=== PATIENT | female | born 1945 | race Caucasian/White ===

== ENCOUNTER 2016-05-09 15:18 | Inpatient (IN) | payer OTHER ==
[~2016-05-09] VITALS: Ht 162.6 cm; Wt 73.7 kg
[~2016-05-09 15:18] MED LIST: ASPIRIN ADULT L81 MG PO; ATORVASTATIN CA20 MG PO; AVELOX ABC PAC400 MG PO; IPRATROPIUM BROMIDE/ IN; LEVOFLOXACIN500 MG PO; PROAIR HFA IN; QVAR40 MCG IN; SPIRIVA18 MCG INH; TYLENOL325 MG PO
--- NOTE | 2016-05-09 17:01 | DIAGNOSTIC IMAGING REPORT ---
PROCEDURE: XR CHEST 1 VIEW INDICATION: SHORTNESS OF BREATH TECHNIQUE: Portable AP view 04:29 p.m. COMPARISON: Chest 03/17/2016 FINDINGS: Allowing for overlying wires and electrodes, lungs are clear. Heart and mediastinum are normal. Mild degenerative changes of the thoracic spine. Thorax is otherwise normal. IMPRESSION: 1. Negative chest.
--- NOTE | 2016-05-09 20:13 | ED ORDER SUMMARY ---
..... Patient: MARCO SMART OrderSheet [facility] VisitID: [id number] [address] [place] [address] 70y, F Registration Date/Time: 05/09/2016 ORDER SHEET Weight: 68.0 kg (estimated) Allergies: No Known Drug Allergy GENERAL ORDERS: Chest 1V Urgent (16:08 05/09/2016 Leida LOPEZ) (Ack 16:15 LTapper) (17:06 MCampbell) Green Chain Off Bearer (Continuous) (16:08 05/09/2016 Leida LOPEZ) (16:12 ABarnum R.N.) CBC w Diff Urgent (16:05/09/2016 Leida LOPEZ) (Ack 16:15 LTapper) (18:15 ABarnum R.N.) CMP Urgent (16:05/09/2016 Leida LOPEZ) (Ack 16:15 LTapper) (18:15 ABarnum R.N.) Oxygen (2 L/min) (NC) (16:10 05/09/2016 Leida LOPEZ) (16:12 ABarnum R.N.) Pulse oximeter (16:10 05/09/2016 Leida LOPEZ) (16:12 ABarnum R.N.) Rapid Influenza Screen (Nasal Pharyngeal) (swab) Urgent (19:45 05/09/2016 Leida LOPEZ) (Ack 19:46 LTapper) (20:03 ABarnum R.N.) ABG (G) Urgent (20:04 05/09/2016 Leida LOPEZ) (Ack 20:05 LTapper) (20:24 ABarnum R.N.) MEDICATION ORDERS: DuoNeb Neb Tx 1 unit dose (NOW) (16:11 05/09/2016 Leida LOPEZ) (Ack 16:12 ABarnum R.N.) (16:27 RMcCarson) Albuterol Neb Tx 1 unit dose (NOW, with pediatric spacer, HHN) (20:02 05/09/2016 Leida LOPEZ) (20:25 ABarnum R.N.) IV FLUIDS: IV NS : initial bolus 1000 mL (1000 mL/hr), then none - (NOW) (16:08 05/09/2016 Leida LOPEZ) (Ack 16:12 ABarnum R.N.) (16:40 ABarnum R.N.) Solu-MEDROL IV 125 mg (NOW) (16:09 05/09/2016 Leida LOPEZ) (Ack 16:12 ABarnum R.N.) (16:40 ABarnum R.N.) Ativan IV 1 mg (HIGH ALERT MEDICATION, NOW) (16:09 05/09/2016 Leida LOPEZ) (Ack 16:12 ABarnum R.N.) (16:40 ABarnum R.N.) Toradol IV 30 mg (NOW) (16:09 05/09/2016 Leida LOPEZ) (Ack 16:12 ABarnum R.N.) (16:39 ABarnum R.N.) Dilaudid IV 1 mg (HIGH ALERT MEDICATION, NOW) (18:14 05/09/2016 Leida LOPEZ) (18:26 ABarnum R.N.) Toradol IV 30 mg (NOW) (18:14 05/09/2016 Leida LOPEZ) (Cancelled: Other18:16 Leida LOPEZ) IV NS : initial bolus 1000 mL (1000 mL/hr), then none - (NOW) (19:46 05/09/2016 Leida LOPEZ) (19:55 ABarnum R.N.) ORDER SHEET NOTES: [Electronically signed by Shanice Willoughby R.N. (16:07 05/10/2016)] [Electronically signed by Concepcion Hermosillo MD (21:18 05/13/2016)] [Electronically locked/signed by Shanice Willoughby R.N. (16:07 05/10/2016)]
--- NOTE | 2016-05-09 20:13 | ED NURSING NOTES ---
Clinical Report - Nurses [facility] [address] [place] [address] 05/09/2016 15:20 Patient: MARCO SMART TRIAGE Triage time 15:May 09 2016. Acuity: LEVEL 3. Chief Complaint: SHORTNESS OF BREATH, DIFFICULTY BREATHING and WHEEZING. --15:32 Fartun August R.N. 15:28 05/09/16. BP: 130/58. HR: 110. RR: 22. O2 saturation: 85% on room air. Temp: 98.5 F (oral). Pain level now: 8/10. Additional comments: Added 1.5 l NC oxygen oxygen sat sitting at 94%. --15:32 Fartun Shanice R.N. Weight: 68 kg estimated. Height/Length: 64 inches Per Patient. BMI: 25.8. --15:27 Fartun August R.N. Medications Additional inhaler, unsure of name. ASA Oral 81mg in am. Atorvastatin Calcium Oral 20 mg, at bedtime. Duodenum Oral. Steroid inhaler . --15: Fartun August RSusanN. Allergies No Known Drug Allergy. --15:28 Fartun August RSusanN. History Arrived by private vehicle. Historian: patient. Accompanied by family and daughter (Edie). This is a recurrent problem and onset was abrupt. (4 days). SOCIAL HX: Former smoker, end date 03/19/2016. Alcohol use. Patient is a recovering alcoholic. No drug use. ABUSE ASSESSMENT: No report of abuse. --15:32 Fartun Shanice RSusanN. PROBLEMS: Hypoxia. Lung Disease. Asthma. COPD - Chronic Obstructive Pulmonary Disease. --15:29 Houghton August RSusanN. Interventions ID band on patient. To treatment room. --15:32 Fartun Shanice R.N. PHYSICAL ASSESSMENT Ambulatory to room. GENERAL / NEURO / PSYCH: Alert. Oriented X 4. Appears in distress. HEENT: Mucous membranes are pink. RESPIRATORY: Moderate respiratory distress. The patient can speak a few words at a time. Accessory muscle use. Prolonged expirations. Cough. Chest wall tenderness. Decreased breath sounds. Wheezing present. Crackles present. CVS: Normal sinus rhythm noted. Capillary refill less than 2 seconds. GI / : ( abdominal spasms/guarding with cough). SKIN: Skin is warm and dry. Normal skin turgor. --15:33 Shanice Willoughby R.N. NURSING PROGRESS NOTES Oxygen administered by nasal cannula at 1.5 liters. dermatology physician, pulse oximeter and NIBP monitor placed on patient; director cardiac- Lead II and V5; monitor alarms on. Patient gowned. Head of bed elevated. Reassurance given. Two patient identifiers checked. Call light placed in reach. Side rails up x 1. Bed placed in lowest position. Brakes of bed on. --15:34 Shanice Willoughby R.N. Patient ready for evaluation- chart flagged and ED physician notified. --15:34 Fartun ShaniceThang 16:17 05/09/2016 Duoneb (Ipratropium-Albuterol) Neb TX Nebulizer 1 unit dose given. --16:27 Blossom Louis 16:28 05/09/2016 Site #1 started via IV in the right forearm with an 22g angiocath, with aseptic technique and good blood return; two attempts. Saline lock flushed with 10 mL saline. --16:38 Fartun ShaniceThang 16:30 05/09/2016 Started bag #1 1000 mL IV Fluids IV NS (Saline); bolus of 1000 mL over 1 hour(s) via site #1 --16:40 Fartun AugustDavNSusan 16:34 05/09/2016 Toradol IVP 30 mg given over 2 minute(s) via site #1. Allergies verified and confirmed 5 rights. IV patency established. IV site checked: no pain, redness, or swelling. IV flushed thoroughly pre- and post-medication administration. IVP given by RN. --16:39 Fartun ShaniceThang 16:35 05/09/2016 SOLU-MEDROL (MethylPREDNISolone Sodium Succ) IVP 125 mg given over 5 minute(s) via site #1. --16:41 Shanice Willoughby R.NSusan 16:40 05/09/2016 Ativan (LORazepam) IVP 1 mg given over 2 minute(s) via site #1. --16:40 Fartunaugust R.NSusan 16:41 05/09/16. BP: 113/59. HR: 97. RR: 18. O2 saturation: 95% on nasal cannula at 2 liters/minute. Pain level now: 11/11. --16:42 Fartun August R.N. Oxygen administered by nasal cannula at 2 liters. dermatology physician, pulse oximeter and NIBP monitor placed on patient; director cardiac- Lead II and V5; monitor alarms on. Reassurance given. Two patient identifiers checked. Call light placed in reach. Side rails up x 1. Bed placed in lowest position. Brakes of bed on. --16:42 Fartun August R.NSusan 17:32 05/09/2016 IV Fluids IV NS Discontinued: bag #1 completed. Total amount infused: 1000 mL. IV patency established. IV site checked: no pain, redness, or swelling. IV flushed thoroughly. --17:32 Houghtonaugust R.NSusan 17:34 05/09/2016 Toradol IVP Response: no adverse reaction. --17:34 Fartunaugust R.NSusan 17:34 05/09/2016 SOLU-MEDROL IVP Response: no adverse reaction. --17:34 Houghtonaugust R.NSusan 17:35 05/09/2016 Ativan IVP Response: no adverse reaction. --17:35 Houghtonaugust R.NSusan 18:24 05/09/16. BP: 122/42. HR: 109. RR: 14. O2 saturation: 91% on nasal cannula at 2 liters/minute. --18:25 Fartunaugust R.N. Oxygen administered by nasal cannula at 2 liters. Monitoring of patient in place. Patient gowned. Head of bed elevated. Reassurance given. Two patient identifiers checked. Call light placed in reach. Side rails up. Bed placed in lowest position. Brakes of bed on. --18:25 Fartun August R.NSusan 18:26 05/09/2016 Dilaudid (HYDROmorphone HCl PF) IVP 1 mg given over 2 hour(s) via site #1. Allergies verified, confirmed 5 rights and sedative warning given to the patient and patient's family. IV patency established. IV site checked: no pain, redness, or swelling. IV flushed thoroughly pre- and post-medication administration. IVP given by RN. --18:26 Fartun AugustDavNSusan 19:43 05/09/16. BP: 82/48. HR: 93. RR: 17. O2 saturation: 95% on nasal cannula at 2 liters/minute. Pain level now: 11/11. --19:44 Fartun AugustThang Oxygen administered by nasal cannula at 2 liters. dermatology physician, pulse oximeter and NIBP monitor placed on patient; director cardiac- Lead II and V5; monitor alarms on. Head of bed elevated. Reassurance given. Two patient identifiers checked. Call light placed in reach. Side rails up x 1. Bed placed in lowest position. Brakes of bed on. --19:44 FartunAugust RSusanNSusan 19:55 05/09/2016 Started bag #2 1000 IV Fluids IV NS (Saline); bolus of 1000 mL over 1 hour(s) via site #1 via IV pump. Allergies verified and confirmed 5 rights. IV patency established. IV site checked: no pain, redness, or swelling. IV flushed thoroughly pre- and post-medication administration. --19:56 Fartun August RSusanNSusan 19:55 05/09/2016 Dilaudid IVP Response: no adverse reaction. --19:55 Houghton, August R.NSusan 20:15 05/09/2016 Albuterol Neb TX Nebulizer 1 unit dose given. Given by the respiratory therapist. Allergies verified and confirmed 5 rights. --20:25 Fartun August RSusanNSusan 15:45 05/09/16. BP: 101/42. HR: 103. RR: 23. O2 saturation: 93%. --21:35 Fartun August RSusanNSusan 16:00 05/09/16. BP: 109/52. HR: 110. RR: 23. O2 saturation: 93%. --21:36 Fartun Shanice, R.N. 17:00 05/09/16. BP: 112/56. HR: 95. RR: 21. O2 saturation: 94%. --21:36 Houghton Shanice, R.N. 17:15 05/09/16. BP: 74/53. HR: 112. RR: 26. O2 saturation: 95%. --21:36 Fartun, August, R.N. 17:30 05/09/16. BP: 106/46. HR: 97. RR: 22. O2 saturation: 93%. --21:37 Houghton Shanice, R.N. 18:00 05/09/16. BP: 145/133. HR: 112. RR: 25. O2 saturation: 91%. --21:38 Fartun Shanice, R.N. 18:30 05/09/16. BP: 102/46. HR: 101. RR: 16. O2 saturation: 92%. --21:39 Houghton August, R.N. 18:45 05/09/16. BP: 104/46. HR: 98. RR: 14. O2 saturation: 93%. --21:39 Houghton August, R.N. 19:00 05/09/16. BP: 117/54. HR: 99. RR: 18. O2 saturation: 93%. --21:39 Houghton Shanice, R.N. 19:15 05/09/16. BP: 98/80. HR: 94. RR: 19. O2 saturation: 95%. --21:40 Fartun August, R.N. 19:30 05/09/16. BP: 67/49. HR: 90. RR: 13. O2 saturation: 94%. --21:40 Houghton August, R.N. 19:45 05/09/16. BP: 109/45. HR: 92. RR: 19. O2 saturation: 95%. --21:41 Fartun Shanice, R.N. 20:00 05/09/16. BP: 106/66. HR: 93. RR: 16. O2 saturation: 96%. --21:41 Houghton August, R.N. 20:15 05/09/16. BP: 102/44. HR: 95. RR: 15. O2 saturation: 94%. --21:42 Fartun August, R.N. 20:30 05/09/16. BP: 100/47. HR: 99. RR: 15. O2 saturation: 94%. --21:42 Houghton August, R.N. 20:45 05/09/16. BP: 95/50. HR: 100. RR: 14. O2 saturation: 93%. --21:42 Fartun August, R.N. 21:00 05/09/16. BP: 103/43. HR: 96. RR: 13. O2 saturation: 94%. --21:44 Houghton August, R.N. 21:15 05/09/16. BP: 107/51. HR: 96. RR: 15. O2 saturation: 95%. --21:44 Houghton August R.NSusan 21:45 05/09/16. BP: 99/56. HR: 95. RR: 14. O2 saturation: 95%. Pain level now: 11/11. --21:45 Shanice Willoughby R.NSusan DISPOSITION / DISCHARGE <<STRICKEN ENTRY-- 16:35 05/09/2016 SOLU-MEDROL (MethylPREDNISolone Sodium Succ) IVP 125 mg given over 5 minute(s) via site #1. --16:40 Shanice Willoughby RArmin --END STRIKE>> Correction. --16:41 Shanice Willoughby R.N. <<STRICKEN ENTRY-- 19:55 05/09/2016 Started bag #2 1000 mL IV Fluids IV NS (Saline); bolus of 1000 mL over 1 hour(s) via site #1 via IV pump. Allergies verified and confirmed 5 rights. IV patency established. IV site checked: no pain, redness, or swelling. IV flushed thoroughly pre- and post-medication administration. --19:55 Shanice Willoughby RArmin --END STRIKE>> Change to Details. --19:56 Shanice Willoughby R.NSusan 21:54 05/09/2016 IV Fluids IV NS Discontinued: bag #2 completed upon admission. Total amount infused: 1000 mL. IV patency established. IV site checked: no pain, redness, or swelling. IV flushed thoroughly. --21:54 Shanice Willoughby R.N. 21:54 05/09/2016 Albuterol Neb TX Response: no adverse reaction. --21:54 Shanice Willoughby R.N. 21:54 05/09/2016 Duoneb Neb TX Response: no adverse reaction. --21:55 Shanice Willoughby R.N. 21:55 05/09/2016 Site #[address] upon admission. --21:55 Shanice Willoughby R.N. Departure time: 2150 PM. Admitted to Acute Care (212). Transported via stretcher by transport team with O2. Report was given to a nurse. Report included patient's care, treatment, medications, reviewed medication reconcilliation, and condition (including any recent changes or anticipated changes). All questions were answered. Report was acknowledged and care was transferred. --21:55 Shanice Willoughby R.N. Locked/Released at 05/10/2016 16:07 by Shanice Willoughby R.N.
--- NOTE | 2016-05-09 20:13 | ED CLINICAL REPORT ---
Clinical Report - Physicians/Mid Levels [facility] [address] [place] [address] 05/09/2016 15:20 Patient: MARCO SMART Time Seen: 15:51. Arrived- By private vehicle. Historian- patient. HISTORY OF PRESENT ILLNESS Chief Complaint: DYSPNEA and HISTORY OF CHRONIC OBSTRUCTIVE PULMONARY DISEASE. This started yesterday and is still present. The dyspnea is described as moderate. The dyspnea is worsened by walking, exertion and cough (nothing improves). The patient has had a cough, wheezing, dyspnea on exertion and anxiety. No sputum production, fever, sweating episodes or chills. No chest pain or discomfort, calf pain, foot swelling or orthopnea. No dizziness, tingling, numbness or palpitations. (PT states her abdomen is very sore from coughing and breathing hard.). Similar symptoms previously: Many times. Recent medical care: Not recently seen/assessed. REVIEW OF SYSTEMS The patient has not had weight loss. No muscle aches, eye irritation, sore throat, nasal discharge or sinus drainage. No nausea, vomiting, abdominal pain, diarrhea or black stools. No bloody stools, headache, fainting episodes, blurred vision or difficulty with urination. No excessive urination, skin rash, enlarged lymph nodes or joint pain. All systems otherwise negative, except as recorded above. PAST HISTORY Problems: Hypoxia. Lifestyle / Substance Problems. Gastroesophageal Reflux Disease. Gastritis. Coronary Artery Disease. Immunizations. COPD - Chronic Obstructive Pulmonary Disease. Asthma. Additional Surgeries: Appendectomy. Basal cell carcinoma removal. Cardiac Catheterization. Hysterectomy. Shoulder Surgery. Tonsillectomy. Medications: Additional inhaler, unsure of name. ASA Oral 81mg in am. Atorvastatin Calcium Oral 20 mg, at bedtime. Duodenum Oral. Steroid inhaler . Allergies: No Known Drug Allergy. SOCIAL HISTORY Former smoker. Alcohol use. Patient is a recovering alcoholic. No drug use. ADDITIONAL NOTES The nursing notes have been reviewed. PHYSICAL EXAM Vital Signs: 05/09/2016 15:28 BP: 130/58. HR: 110. RR: 22. O2 saturation: 85%. Temp: 98.5 F. Pain level now: 8/10. Have been reviewed. Appearance: Alert. Patient in moderate distress. Distress appears respiratory and due to anxiety. Eyes: Pupils equal, round and reactive to light. Eyes normal inspection. ENT: Nose normal. Neck: Normal inspection. Neck supple. CVS: Tachycardia. Heart sounds normal. Pulses normal. Respiratory: Moderate respiratory distress with accessory muscle use, anxiety and tachypnea. Speaks short phrases. Accessory muscle use. Moderately prolonged expirations. Moderately decreased air movement diffusely over both lungs. Wheezing present. Abdomen: Soft. Mild tenderness diffusely. No guarding or rebound tenderness. Back: Normal inspection. No CVA tenderness. Skin: Skin warm and dry. Normal skin color. No rash. Normal skin turgor. Extremities: Extremities exhibit normal ROM. No lower extremity edema. Neuro: No motor deficit. No sensory deficit. (Grossly oriented.). LABS, X-RAYS, AND EKG Rhythm Strip #1: Time: (1554). Rate= 108. Sinus tachycardia. Regular rhythm. Narrow QRS complexes. No ectopy. Conduction normal. Normal ST segments and T waves. The study was interpreted by me. Chest X-ray: No acute disease. Normal lung markings present. Normal heart size. Mediastinum normal. Great vessels normal. Soft tissues normal. No infiltrate. No fracture. No bony lesion present. Views: AP (portable). Technique: good. The X-rays were independently viewed by me, interpreted by the radiologist and contemporaneously by me and discussed with the radiologist. Prior films were not available for comparison. Laboratory Tests: CBC w Diff: (CIRO: 05/09/2016 17:20) ( MsgRcvd 05/09/2016 17:34) Final results Test Result Flag Units (Reference) WHITE BLOOD COUNT 3.8 L K/uL (4.5-11.5) RED BLOOD COUNT 3.88 L M/uL (4.00-5.20) HEMOGLOBIN 11.3 L gm/dL (12.0-16.0) HEMATOCRIT 35.3 L % (36.0-46.0) MEAN CELL VOLUME 91 fL (80-100) MEAN CORPUSCULAR HGB 29 pg (26-34) MEAN CORPUSCULAR HGB CONC 32 g/dL (31-37) RED CELL DISTRIBUTION WIDTH 13.7 % (11.6-14.8) PLATELET COUNT 194 K/uL (150-400) NEUTROPHIL % 59.9 % (50-75) LYMPH % 24.4 L % (25-40) MONO % 15.2 H % (3-14) EOSINOPHIL % 0.2 % (0-4) BASOPHIL % 0.3 % (0-2) CMP: (CIRO: 05/09/2016 16:40) ( MsgRcvd 05/09/2016 17:12) Final results Test Result Flag Units (Reference) GLUCOSE 141 H mg/dL (70-110) BUN 7 mg/dL (7-18) CREATININE 0.6 mg/dL (0.6-1.3) Estimated GFR >60 mL/min Estimated GFR- >60 mL/min Note: Persistent reduction over 3 months in eGFR<60 mL/min/1.73 m2 defines CKD. Patients with eGFR values>=60 mL/min/1.73 m2 may also have CKD if evidence ofpersistent proteinuria. Additional information may be foundat www.kidney.org. SODIUM 141 mmol/L (136-145) POTASSIUM 3.4 L mmol/L (3.5-5.1) CHLORIDE 105 mmol/L (98-107) CARBON DIOXIDE 29 mmol/L (21-32) CALCIUM 8.5 mg/dL (8.5-10.1) TOTAL PROTEIN 6.3 L g/dL (6.4-8.2) ALBUMIN 3.2 L g/dL (3.3-5.0) BILIRUBIN, TOTAL 0.3 mg/dL (0.0-1.0) ALKALINE PHOSPHATASE 83 U/L (46-116) AST (SGOT) 20 U/L (15-37) ALT (SGPT) 17 U/L (12-78) Test Result Flag (Reference) FIO2 32 % (20-101) ABG MODE OF DELIVERY NC MODIFIED CUCO TEST POSITIVE? YES LITERS PER MIN. 3 L/MIN (0-20) ABG PATIENT RESP RATE 20 /MIN ARTERIAL BLOOD GAS SITE LR ARTERIAL BLOOD GAS pH 7.31 L (7.35-7.45) ABG PCO2 57.6 H mmHg (35-45) ABG PO2 74.1 mmHg (60.0-80.0) ABG BASE EXCESS 2.5 H mmol/L (-6.0--6.0) ABG HCO3 29.2 H mmol/L (20.0-26.0) ABG TCO2 31.0 H mmol/L (24.0-30.0) ABG BxWgH2w 89.9 H mmHg (7.0-14.0) *NOTE: Normal range is based on a FIO2 of 21% ABG SAT O2 94.4 L % (95.1-100.0) ABG TOTAL HEMOGLOBIN 11.6 L g/dL (12.0-16.0) ABG O2 HEMOGLOBIN 92.7 L % (95.0-100.0) ABG CARBOXYHEMOGLOBIN 1.5 % (0.5-1.5) ABG METHEMOGLOBIN 0.3 L % (0.4-1.5) ABG RHEMOGLOBIN 5.5 % Rapid Influenza Screen: (CIRO: 05/09/2016 19:50) ( MsgRcvd 05/09/2016 20:20) Final results SPECIMEN DESCRIPTION: SWAB Test Result Flag (Reference) RAPID INFLUENZA SCREEN DATE: 05/09/16 INFLUENZA A: NEGATIVE SCREEN FOR INFLUENZA A INFLUENZA B: NEGATIVE SCREEN FOR INFLUENZA B RAPID INFLUENZA NEAGATIVE FOR "A" "B". . Pulse Oximetry: 05/09/2016 15:28 O2 saturation: 85%. (FIO2 - room air). Interpretation: normal. PROGRESS AND PROCEDURES Course of Care: I did evaluate pt upon arrival in the ED. She was hypoxic and in respiratory distress, and I did feel she should have immediate respiratory intervention. She was started on a duoneb, followed by an albuterol neb and an IV dose of Solu-medrol. She was given a liter of NS, as well as IV Toradol, Ativan, and Dilaudid for her painful abdominal muscles. Pt did improve after the above interventions, but pt and daughter did not feel that she was back to her baseline respiratory status. Her work-up was negative for other acute issues, but I did feel that she should be admitted for her COPD exacerbation. Critical care performed (60 minutes). Time is exclusive of separately billable procedures. Time includes: direct patient care, patient reassessment, coordination of patient care, interpretation of data (laboratory data, pulse oximetry, arterial blood gases, chest xrays and cardiac output measurements), review of patient's medical records, medical consultation, family consultation regarding treatment decisions and documentation of patient care- see progress notes. The patient required critical care due to the acute impairment of vital organ systems (respiratory) and a high probability of imminent and life threatening deterioration. Multiple emergent and urgent interventions were required to prevent sudden life threatening deterioration. Discussed case with hospitalist, (Albertina). Reviewed test results and need for additional work-up. Agreed upon treatment plan and decision to admit. Health care provider will see patient in hospital. Patient and family counseled in person regarding the patient's serious condition, test results, diagnosis and need for admission. Concerns were addressed. Old medical records reviewed. Disposition: Admitted to Acute Care. Condition: stable and serious. CLINICAL IMPRESSION Acute exacerbation of COPD. (Electronically signed by Concepcion Hermosillo MD 05/13/2016 21:18)
--- NOTE | 2016-05-09 20:13 | ED NURSING NOTES ---
Clinical Report - Nurses [facility] [address] [place] [address] 05/09/2016 15:20 Patient: MARCO SMART TRIAGE Triage time 15:May 09 2016. Acuity: LEVEL 3. Chief Complaint: SHORTNESS OF BREATH, DIFFICULTY BREATHING and WHEEZING. --15:32 Fartun August R.N. 15:28 05/09/16. BP: 130/58. HR: 110. RR: 22. O2 saturation: 85% on room air. Temp: 98.5 F (oral). Pain level now: 8/10. Additional comments: Added 1.5 l NC oxygen oxygen sat sitting at 94%. --15:32 Fartun Shanice R.N. Weight: 68 kg estimated. Height/Length: 64 inches Per Patient. BMI: 25.8. --15:27 Fartun August R.N. Medications Additional inhaler, unsure of name. ASA Oral 81mg in am. Atorvastatin Calcium Oral 20 mg, at bedtime. Duodenum Oral. Steroid inhaler . --15: Fartun August RSusanN. Allergies No Known Drug Allergy. --15:28 Fartun August RSusanN. History Arrived by private vehicle. Historian: patient. Accompanied by family and daughter (Edie). This is a recurrent problem and onset was abrupt. (4 days). SOCIAL HX: Former smoker, end date 03/19/2016. Alcohol use. Patient is a recovering alcoholic. No drug use. ABUSE ASSESSMENT: No report of abuse. --15:32 Fartun Shanice RSusanN. PROBLEMS: Hypoxia. Lung Disease. Asthma. COPD - Chronic Obstructive Pulmonary Disease. --15:29 [place] August RSusanN. Interventions ID band on patient. To treatment room. --15:32 Fartun Shanice R.N. PHYSICAL ASSESSMENT Ambulatory to room. GENERAL / NEURO / PSYCH: Alert. Oriented X 4. Appears in distress. HEENT: Mucous membranes are pink. RESPIRATORY: Moderate respiratory distress. The patient can speak a few words at a time. Accessory muscle use. Prolonged expirations. Cough. Chest wall tenderness. Decreased breath sounds. Wheezing present. Crackles present. CVS: Normal sinus rhythm noted. Capillary refill less than 2 seconds. GI / : ( abdominal spasms/guarding with cough). SKIN: Skin is warm and dry. Normal skin turgor. --15:33 Shanice Willoughby R.N. NURSING PROGRESS NOTES Oxygen administered by nasal cannula at 1.5 liters. hospital monitor, pulse oximeter and NIBP monitor placed on patient; property assessment monitor- Lead II and V5; monitor alarms on. Patient gowned. Head of bed elevated. Reassurance given. Two patient identifiers checked. Call light placed in reach. Side rails up x 1. Bed placed in lowest position. Brakes of bed on. --15:34 Shanice Willoughby R.N. Patient ready for evaluation- chart flagged and ED physician notified. --15:34 Fartun ShaniceThang 16:17 05/09/2016 Duoneb (Ipratropium-Albuterol) Neb TX Nebulizer 1 unit dose given. --16:27 Blossom Louis 16:28 05/09/2016 Site #1 started via IV in the right forearm with an 22g angiocath, with aseptic technique and good blood return; two attempts. Saline lock flushed with 10 mL saline. --16:38 Fartun ShaniceThang 16:30 05/09/2016 Started bag #1 1000 mL IV Fluids IV NS (Saline); bolus of 1000 mL over 1 hour(s) via site #1 --16:40 Fartun AugustDavNSusan 16:34 05/09/2016 Toradol IVP 30 mg given over 2 minute(s) via site #1. Allergies verified and confirmed 5 rights. IV patency established. IV site checked: no pain, redness, or swelling. IV flushed thoroughly pre- and post-medication administration. IVP given by RN. --16:39 Fartun ShaniceThang 16:35 05/09/2016 SOLU-MEDROL (MethylPREDNISolone Sodium Succ) IVP 125 mg given over 5 minute(s) via site #1. --16:41 Shanice Willoughby R.NSusan 16:40 05/09/2016 Ativan (LORazepam) IVP 1 mg given over 2 minute(s) via site #1. --16:40 Fartunaugust R.NSusan 16:41 05/09/16. BP: 113/59. HR: 97. RR: 18. O2 saturation: 95% on nasal cannula at 2 liters/minute. Pain level now: 11/11. --16:42 Fartun August R.N. Oxygen administered by nasal cannula at 2 liters. hospital monitor, pulse oximeter and NIBP monitor placed on patient; property assessment monitor- Lead II and V5; monitor alarms on. Reassurance given. Two patient identifiers checked. Call light placed in reach. Side rails up x 1. Bed placed in lowest position. Brakes of bed on. --16:42 Fartun August R.NSusan 17:32 05/09/2016 IV Fluids IV NS Discontinued: bag #1 completed. Total amount infused: 1000 mL. IV patency established. IV site checked: no pain, redness, or swelling. IV flushed thoroughly. --17:32 [place] R.NSusan 17:34 05/09/2016 Toradol IVP Response: no adverse reaction. --17:34 Fartunaugust R.NSusan 17:34 05/09/2016 SOLU-MEDROL IVP Response: no adverse reaction. --17:34 [place] R.NSusan 17:35 05/09/2016 Ativan IVP Response: no adverse reaction. --17:35 [place] R.NSusan 18:24 05/09/16. BP: 122/42. HR: 109. RR: 14. O2 saturation: 91% on nasal cannula at 2 liters/minute. --18:25 Fartunaugust R.N. Oxygen administered by nasal cannula at 2 liters. Monitoring of patient in place. Patient gowned. Head of bed elevated. Reassurance given. Two patient identifiers checked. Call light placed in reach. Side rails up. Bed placed in lowest position. Brakes of bed on. --18:25 Fartun August R.NSusan 18:26 05/09/2016 Dilaudid (HYDROmorphone HCl PF) IVP 1 mg given over 2 hour(s) via site #1. Allergies verified, confirmed 5 rights and sedative warning given to the patient and patient's family. IV patency established. IV site checked: no pain, redness, or swelling. IV flushed thoroughly pre- and post-medication administration. IVP given by RN. --18:26 Fartun AugustDavNSusan 19:43 05/09/16. BP: 82/48. HR: 93. RR: 17. O2 saturation: 95% on nasal cannula at 2 liters/minute. Pain level now: 11/11. --19:44 Fartun AugustThang Oxygen administered by nasal cannula at 2 liters. hospital monitor, pulse oximeter and NIBP monitor placed on patient; property assessment monitor- Lead II and V5; monitor alarms on. Head of bed elevated. Reassurance given. Two patient identifiers checked. Call light placed in reach. Side rails up x 1. Bed placed in lowest position. Brakes of bed on. --19:44 FartunAugust RSusanNSusan 19:55 05/09/2016 Started bag #2 1000 IV Fluids IV NS (Saline); bolus of 1000 mL over 1 hour(s) via site #1 via IV pump. Allergies verified and confirmed 5 rights. IV patency established. IV site checked: no pain, redness, or swelling. IV flushed thoroughly pre- and post-medication administration. --19:56 Fartun August RSusanNSusan 19:55 05/09/2016 Dilaudid IVP Response: no adverse reaction. --19:55 [place], August R.NSusan 20:15 05/09/2016 Albuterol Neb TX Nebulizer 1 unit dose given. Given by the respiratory therapist. Allergies verified and confirmed 5 rights. --20:25 Fartun August RSusanNSusan 15:45 05/09/16. BP: 101/42. HR: 103. RR: 23. O2 saturation: 93%. --21:35 Fartun August RSusanNSusan 16:00 05/09/16. BP: 109/52. HR: 110. RR: 23. O2 saturation: 93%. --21:36 Fartun Shanice, R.N. 17:00 05/09/16. BP: 112/56. HR: 95. RR: 21. O2 saturation: 94%. --21:36 [place] Shanice, R.N. 17:15 05/09/16. BP: 74/53. HR: 112. RR: 26. O2 saturation: 95%. --21:36 Fartun, August, R.N. 17:30 05/09/16. BP: 106/46. HR: 97. RR: 22. O2 saturation: 93%. --21:37 [place] Shanice, R.N. 18:00 05/09/16. BP: 145/133. HR: 112. RR: 25. O2 saturation: 91%. --21:38 Fartun Shanice, R.N. 18:30 05/09/16. BP: 102/46. HR: 101. RR: 16. O2 saturation: 92%. --21:39 [place] August, R.N. 18:45 05/09/16. BP: 104/46. HR: 98. RR: 14. O2 saturation: 93%. --21:39 [place] August, R.N. 19:00 05/09/16. BP: 117/54. HR: 99. RR: 18. O2 saturation: 93%. --21:39 [place] Shanice, R.N. 19:15 05/09/16. BP: 98/80. HR: 94. RR: 19. O2 saturation: 95%. --21:40 Fartun August, R.N. 19:30 05/09/16. BP: 67/49. HR: 90. RR: 13. O2 saturation: 94%. --21:40 [place] August, R.N. 19:45 05/09/16. BP: 109/45. HR: 92. RR: 19. O2 saturation: 95%. --21:41 Fartun Shanice, R.N. 20:00 05/09/16. BP: 106/66. HR: 93. RR: 16. O2 saturation: 96%. --21:41 [place] August, R.N. 20:15 05/09/16. BP: 102/44. HR: 95. RR: 15. O2 saturation: 94%. --21:42 Fartun August, R.N. 20:30 05/09/16. BP: 100/47. HR: 99. RR: 15. O2 saturation: 94%. --21:42 [place] August, R.N. 20:45 05/09/16. BP: 95/50. HR: 100. RR: 14. O2 saturation: 93%. --21:42 Fartun August, R.N. 21:00 05/09/16. BP: 103/43. HR: 96. RR: 13. O2 saturation: 94%. --21:44 [place] August, R.N. 21:15 05/09/16. BP: 107/51. HR: 96. RR: 15. O2 saturation: 95%. --21:44 [place] August R.NSusan 21:45 05/09/16. BP: 99/56. HR: 95. RR: 14. O2 saturation: 95%. Pain level now: 11/11. --21:45 Shanice Willoughby R.NSusan DISPOSITION / DISCHARGE <<STRICKEN ENTRY-- 16:35 05/09/2016 SOLU-MEDROL (MethylPREDNISolone Sodium Succ) IVP 125 mg given over 5 minute(s) via site #1. --16:40 Shanice Willoughby RArmin --END STRIKE>> Correction. --16:41 Shanice Willoughby R.N. <<STRICKEN ENTRY-- 19:55 05/09/2016 Started bag #2 1000 mL IV Fluids IV NS (Saline); bolus of 1000 mL over 1 hour(s) via site #1 via IV pump. Allergies verified and confirmed 5 rights. IV patency established. IV site checked: no pain, redness, or swelling. IV flushed thoroughly pre- and post-medication administration. --19:55 Shanice Willoughby RArmin --END STRIKE>> Change to Details. --19:56 Shanice Willoughby R.NSusan 21:54 05/09/2016 IV Fluids IV NS Discontinued: bag #2 completed upon admission. Total amount infused: 1000 mL. IV patency established. IV site checked: no pain, redness, or swelling. IV flushed thoroughly. --21:54 Shanice Willoughby R.N. 21:54 05/09/2016 Albuterol Neb TX Response: no adverse reaction. --21:54 Shanice Willoughby R.N. 21:54 05/09/2016 Duoneb Neb TX Response: no adverse reaction. --21:55 Shanice Willoughby R.N. 21:55 05/09/2016 Site #[address] upon admission. --21:55 Shanice Willoughby R.N. Departure time: 2150 PM. Admitted to Acute Care (212). Transported via stretcher by transport team with O2. Report was given to a nurse. Report included patient's care, treatment, medications, reviewed medication reconcilliation, and condition (including any recent changes or anticipated changes). All questions were answered. Report was acknowledged and care was transferred. --21:55 Shanice Willoughby R.N. Locked/Released at 05/10/2016 16:07 by Shanice Willoughby R.N.
--- NOTE | 2016-05-09 20:13 | ED ORDER SUMMARY ---
..... Patient: MARCO SMART OrderSheet [facility] VisitID: [id number] [address] [place] [address] 70y, F Registration Date/Time: 05/09/2016 ORDER SHEET Weight: 68.0 kg (estimated) Allergies: No Known Drug Allergy GENERAL ORDERS: Chest 1V Urgent (16:08 05/09/2016 Leida LOPEZ) (Ack 16:15 LTapper) (17:06 MCampbell) Still Tender (Continuous) (16:08 05/09/2016 Leida LOPEZ) (16:12 ABarnum R.N.) CBC w Diff Urgent (16:05/09/2016 Leida LOPEZ) (Ack 16:15 LTapper) (18:15 ABarnum R.N.) CMP Urgent (16:05/09/2016 Leida LOPEZ) (Ack 16:15 LTapper) (18:15 ABarnum R.N.) Oxygen (2 L/min) (NC) (16:10 05/09/2016 Leida LOPEZ) (16:12 ABarnum R.N.) Pulse oximeter (16:10 05/09/2016 Leida LOPEZ) (16:12 ABarnum R.N.) Rapid Influenza Screen (Nasal Pharyngeal) (swab) Urgent (19:45 05/09/2016 Leida LOPEZ) (Ack 19:46 LTapper) (20:03 ABarnum R.N.) ABG (G) Urgent (20:04 05/09/2016 Leida LOPEZ) (Ack 20:05 LTapper) (20:24 ABarnum R.N.) MEDICATION ORDERS: DuoNeb Neb Tx 1 unit dose (NOW) (16:11 05/09/2016 Leida LOPEZ) (Ack 16:12 ABarnum R.N.) (16:27 RMcCarson) Albuterol Neb Tx 1 unit dose (NOW, with pediatric spacer, HHN) (20:02 05/09/2016 Leida LOPEZ) (20:25 ABarnum R.N.) IV FLUIDS: IV NS : initial bolus 1000 mL (1000 mL/hr), then none - (NOW) (16:08 05/09/2016 Leida LOPEZ) (Ack 16:12 ABarnum R.N.) (16:40 ABarnum R.N.) Solu-MEDROL IV 125 mg (NOW) (16:09 05/09/2016 Leida LOPEZ) (Ack 16:12 ABarnum R.N.) (16:40 ABarnum R.N.) Ativan IV 1 mg (HIGH ALERT MEDICATION, NOW) (16:09 05/09/2016 Leida LOPEZ) (Ack 16:12 ABarnum R.N.) (16:40 ABarnum R.N.) Toradol IV 30 mg (NOW) (16:09 05/09/2016 Leida LOPEZ) (Ack 16:12 ABarnum R.N.) (16:39 ABarnum R.N.) Dilaudid IV 1 mg (HIGH ALERT MEDICATION, NOW) (18:14 05/09/2016 Leida LOPEZ) (18:26 ABarnum R.N.) Toradol IV 30 mg (NOW) (18:14 05/09/2016 Leida LOPEZ) (Cancelled: Other18:16 Leida LOPEZ) IV NS : initial bolus 1000 mL (1000 mL/hr), then none - (NOW) (19:46 05/09/2016 Leida LOPEZ) (19:55 ABarnum R.N.) ORDER SHEET NOTES: [Electronically signed by Shanice Willoughby R.N. (16:07 05/10/2016)] [Electronically signed by Concepcion Hermosillo MD (21:18 05/13/2016)] [Electronically locked/signed by Shanice Willoughby R.N. (16:07 05/10/2016)]
[2016-05-09 22:08] VITALS: BP 140/58
--- NOTE | 2016-05-09 23:46 | HISTORY AND PHYSICAL ---
ADMITTED: 05/09/2016 HISTORIAN: The patient, herself. Reliability: Good. CHIEF COMPLAINT: 1. Cough and shortness of breath HISTORY OF PRESENT ILLNESS: A 70-year-old female with past medical history of COPD, GERD, CAD, status post stent placement in 2004, gastritis, hypothyroidism, presented to [facility] Emergency Department with the complaint of cough and shortness of breath. As per the patient, she was fine up until Friday, then on Friday night she started to have cough, which was dry and bothersome, for that she took Pro-Air inhaler, which did not relieve her symptoms, and her cough got worsened. She even tried taking nebulization treatment, that also did not help and then since yesterday she started to have chills with shortness of breath. Her shortness of breath got worsened over time and today morning she was unable to take deep breaths so she came to emergency department. On arrival in ED she was found to be hypoxic with O2 saturation of 85%, tachycardic with heart rate of 110 and tachypneic with respiratory rate of more than 20, blood pressure was 130/58. On physical examination, she was found to be in acute COPD exacerbation, for that she received IV Solu-Medrol, DuoNeb nebulization treatment, O2 through nasal cannula. She complained of rib and abdominal pain on coughing, for that she got Ativan and Dilaudid. Her blood pressure dropped to 82/48 and she was started on normal saline IV boluses. She is admitted to the floor for further management of COPD exacerbation. MEDICAL/SURGICAL HISTORY: Past medical history: COPD, GERD, coronary artery disease, status post stent placement, hypothyroidism, hyperlipidemia. Past surgical history: Hysterectomy, tonsillectomy, shoulder surgery, appendectomy, coronary stent placement. MEDICATIONS: 1. Aspirin 81 mg p.o. daily. 2. Atorvastatin 20 mg p.o. daily. 3. ProAir HFA 90 mcg twice p.r.n. 4. QVAR 40 mcg 2 times daily. 5. Spiriva 18 mcg once daily. ALLERGIES: 1. SHE DOES NOT HAVE ANY MEDICATION ALLERGIES. SOCIAL HISTORY: The patient lives in [facility]. She has a history of chronic cigarette smoking, which she quit in 03/2016. She used to smoke 2 packs of cigarettes every day and had smoked for more than 50 years. She drinks alcohol occasionally, very little. There is no history of drug abuse. FAMILY HISTORY: Mother with history of coronary artery disease, of lung cancer. REVIEW OF SYSTEMS: Denies fever, complains of chills from yesterday. Denies any sweats, weakness, malaise. No vision change, conjunctival inflammation, eyelid inflammation, redness, pain in her eyes. Denies any nasal discharge, nasal congestion, mouth pain, mouth swelling, throat pain, throat swelling. Complains of dry cough, shortness of breath, wheezing. Denies hemoptysis, pleuritic pain. Denies any chest pain, palpitation. Complains of orthopnea. Denies paroxysmal nocturnal dyspnea, edema, lightheadedness. Denies nausea, vomiting, complains of abdominal pain on coughing. Denies diarrhea or constipation. Denies dysuria, frequency, incontinence, hematuria or retention. Complains of rib pain. No back pain. No leg pain. Denies any numbness, weakness, change in her speech, confusion, seizures. PHYSICAL EXAMINATION: VITAL SIGNS: Temperature 97.5, pulse 111, respiratory rate 20 per minute, blood pressure 140/58, oxygen saturation is 92% with 3 L of nasal cannula. GENERAL: She is alert, awake, oriented x3, with mild respiratory distress. HEENT: Eyes: Pupils are equally reactive to light. Moist mucous membranes. LUNGS: Bilateral wheezing present. NECK: No JVD. CARDIAC: Regular rate and rhythm. Normal S1 and S2. ABDOMEN: Normal bowel sounds. Soft, nontender. No guarding. EXTREMITIES: No edema. NEUROLOGIC: No lateralizing signs. LAB/IMAGING: Laboratories: WBC 3.8, hemoglobin 11.3, hematocrit 35.3, neutrophils 59.9, lymphocytes 24.4, monocytes 15.2, platelets 194,000. Sodium 141, potassium 3.4, chloride 105, bicarb 29, BUN 7, creatinine 0.6, GFR more than 60, glucose 141, calcium 8.5. Total bilirubin 0.3, AST 20, ALT 17, alk phos 83, total protein 6.3, albumin 3.2. ABG: PH 7.31, pCO2 57.6, pO2 74.1, bicarb 29.2, O2 saturations 94.4. Imaging: Chest x-ray: No acute cardiopulmonary disease. IMPRESSION/PLAN: 1. Acute exacerbation of chronic obstructive pulmonary disease. Start on IV Solu-Medrol 40 mg b.i.d., DuoNebs q.4 hourly standing. Continue with supplemental oxygen through nasal cannula; keep oxygen saturations more than 92%. Monitor for vital signs, change in mental status. Arterial blood gas in a.m. 2. Coronary artery disease, status post stent, stable. We will continue with aspirin and a statin. 3. Gastroesophageal reflux disease. IV proton pump inhibitor. 4. Hyperlipidemia, stable. Continue with the statin. 5. Hypothyroidism, not on any medication. Check TSH levels in a.m. 6. Deep venous thrombosis prophylaxis: Lovenox. Gastrointestinal prophylaxis: Proton pump inhibitor. 7. The patient's condition guarded. 8. Anticipated discharge in 1 or 2 days. E.m. coding: Inpatient, high/09132.
[2016-05-10 02:43] VITALS: BP 123/61
[2016-05-10 07:16] VITALS: BP 136/70
--- NOTE | 2016-05-10 08:29 | Progress Note ---
Subjective General Note Date: May 10, 2016 Admission Date: May 09, 2016 Hospital Day: 2 PCP: Unknown Status: Inpatient Advanced Directive: FULL CODE Room: 212 Brief History: The patient is a 70-year-old white female with a significant past make a history of COPD, gastroesophageal reflux, coronary artery disease, hypothyroidism, hyperlipidemia, who presented to [facility] emergency department secondary to complaints of cough and shortness of breath. [facility] ER evaluation was consistent with exacerbation of COPD. Secondary to the above, the patient was admitted by Dr. Eng for further evaluation and treatment. For other history present illness, past medical history, family history, social history, review of systems, and admission physical examination please see the patient's history and physical examination and ER visit note in the patient's medical record. Subjective: The patient states she has persistent shortness of breath and ongoing cough. Symptoms slightly improved approximately 20-30% better than on presentation. Patient requests: None Medications and Allergies Medications Current Medications Sig/Marycarmen Start time Last Medication Dose Route Stop Time Status Admin Atorvastatin Calcium 20 MG QPM 05/10 1800 AC PO Aspirin 81 MG DAILY 05/10 899 AC PO Enoxaparin Sodium 40 MG DAILY 05/10 09 AC SC Tiotropium [place] See Dose DAILY 05/10 899 AC Insts (1) IN Pantoprazole Sodium 40 MG DAILY@0600 05/10 0600 AC 05/10 IV 0605 Albuterol/Ipratropium 3 ML RTQ4H 05/10 0000 AC 05/10 IN 0729 Acetaminophen 650 MG Q6H PRN 05/09 2200 AC PO Docusate Sodium 250 MG BID PRN 05/09 220 AC PO Ondansetron HCl 4 MG Q6H PRN 05/09 2200 AC IV Sodium Chloride 1,000 ML ASDIRECTED 05/09 2199 AC 05/10 IV 0416 Methylprednisolone 40 MG BID 05/09 215 AC Sodium Succinate IV Dose Instructions: (1)Tiotropium [place]: 1 CAPSULE VIA HANDIHALER Allergies Coded Allergies: NKA (03/15/16) Physical Exam Vital Signs / I&Os Vital Signs Date Time Temp Pulse Resp B/P Pulse O2 O2 Flow FiO2 Ox Delivery Rate 05/10 0729 2.0 05/10 0716 98.1 94 20 136/70 98 Nasal 2.0 Cannula 05/10 05 2.0 05/10 0348 2.0 05/10 0243 98.2 91 22 123/61 91 Nasal 2.0 Cannula 05/097 2.0 05/095 Nasal 3.0 Cannula 05/098 97.5 111 20 140/58 92 Nasal 3.0 Cannula 05/09 2007 1.0 05/09 1733 1.0 05/09 1616 2.0 I&O 05/10 0000 05/09 1600 05/09 0800 Intake Total 0 Output Total 150 Balance -150 General Appearance Alert, Oriented X3, Cooperative, No acute distress Lungs Decreased air movement bilaterally. Scattered rhonchi, mild expiratory wheezes Cardiovascular Regular rate and rhythm, Normal S1 and S2 Abdomen Normal bowel sounds, Soft Extremities No cyanosis, No clubbing Neurological Grossly normal Psych/Mental Status Mental status normal, Mood normal LAB Results Laboratory Tests 05/10 05/10 05/10 05/09 05/09 0540 0540 0500 2003 1720 Blood Gas Sample Site LR LR Total CO2 (24.0 - 30.0 mmol/L) 29.3 31.0 ABG pH (7.35 - 7.45) 7.33 7.31 ABG pCO2 at Pt Temp (35 - 45 mmHg) 53.1 57.6 ABG pO2 at Pt Temp (60.0 - 80.0 mmHg) 75.4 74.1 ABG HCO3 (20.0 - 26.0 mmol/L) 27.7 29.2 ABG O2 Sat Calc/Rachel (95.1 - 100.0 %) 95.6 94.4 ABG Base Excess (-6.0 - -6.0 mmol/L) 1.4 2.5 ABG Reduced Hgb (%) 4.3 5.5 ABG Carboxyhemoglobin (0.5 - 1.5 %) 1.3 1.5 ABG Methemoglobin (0.4 - 1.5 %) 0.3 0.3 Raf Test YES YES Other Total Hgb (12.0 - 16.0 g/dL) 11.3 11.6 A-a O2 Gradient (7.0 - 14.0 mmHg) 64.1 89.9 Hgb O2 Saturation (95.0 - 100.0 %) 94.1 92.7 Respiration Rate (/MIN) 20 20 O2 Liters/Min (0 - 20 L/MIN) 2 3 Vent Mode NC NC FiO2 (20 - 101 %) 28 32 Chemistry Plasma Sodium (136 - 145 mmol/L) 143 Plasma Potassium (3.5 - 5.1 mmol/L) 4.3 Plasma Chloride (98 - 107 mmol/L) 109 CO2 (Enzymatic) (21 - 32 mmol/L) 27 BUN (7 - 18 mg/dL) 9 Creatinine (0.6 - 1.3 mg/dL) 0.5 Est GFR ( Amer) (mL/min) >60 Est GFR (Non-Af Amer) (mL/min) >60 Glucose (70 - 110 mg/dL) 164 Plasma Calcium (8.5 - 10.1 mg/dL) 8.6 Plasma Magnesium (1.8 - 2.4 mg/dL) 1.9 TSH 3rd Generation (0.30 - 3.74 uIU/mL) 0.584 Hematology WBC (4.5 - 11.5 K/uL) 2.5 3.8 RBC (4.00 - 5.20 M/uL) 3.72 3.88 Hgb (12.0 - 16.0 gm/dL) 11.0 11.3 Hct (36.0 - 46.0 %) 33.9 35.3 MCV (80 - 100 fL) 91 91 MCH (26 - 34 pg) 30 29 RDW (11.6 - 14.8 %) 13.7 13.7 Neut % (Auto) (50 - 75 %) 78.0 59.9 Lymph % (Auto) (25 - 40 %) 15.2 24.4 [place] % (Auto) (3 - 14 %) 6.5 15.2 Eos % (Auto) (0 - 4 %) 0 0.2 Baso % (Auto) (0 - 2 %) 0.3 0.3 Plt Count, EDTA (150 - 400 K/uL) 195 194 PUBS MCHC (31 - 37 g/dL) 33 32 01/05 1640 Chemistry Plasma Sodium (136 - 145 mmol/L) 141 Plasma Potassium (3.5 - 5.1 mmol/L) 3.4 Plasma Chloride (98 - 107 mmol/L) 105 CO2 (Enzymatic) (21 - 32 mmol/L) 29 BUN (7 - 18 mg/dL) 7 Creatinine (0.6 - 1.3 mg/dL) 0.6 Est GFR ( Amer) (mL/min) >60 Est GFR (Non-Af Amer) (mL/min) >60 Glucose (70 - 110 mg/dL) 141 Plasma Calcium (8.5 - 10.1 mg/dL) 8.5 Total Bilirubin (0.0 - 1.0 mg/dL) 0.3 AST (15 - 37 U/L) 20 ALT (12 - 78 U/L) 17 Alkaline Phosphatase (46 - 116 U/L) 83 Total Protein (6.4 - 8.2 g/dL) 6.3 Albumin (3.3 - 5.0 g/dL) 3.2 Microbiology Date/Time Procedure - Status Source Growth 05/09 1949 Influenza Screen - COMP NASALPHAR Assessment and Plan Problem List 1. COPD with exacerbation Plan -Patient presents with findings of exacerbation of COPD -Continue DuoNeb, albuterol, corticosteroids, and oxygen supplementation -Symptoms slightly improved to approximately 20-30% improved pulmonary status since admission -Monitor 2. CAD (coronary artery disease) Plan -Stable -No chest pain -Monitor 3. Hyperlipidemia Plan -Stable -No further evaluation -Continue Lipitor 20 mg by mouth daily 4. Acute respiratory failure with hypoxia Plan -Patient with hypoxic/hypercarbic respiratory failure -Status improving -See above -Continue present therapy. 5. Hyperglycemia Status Acute Onset Date Unknown Plan -Patient with findings of mild hypoglycemia. Fasting blood sugar this a.m. 164 -Before meals and at bedtime blood sugar checks -Insulin sliding scale -Check hemoglobin A1c Current status: Fair, improved Anticipated discharge date: Anticipated discharge in 1-2 days with improved status Anticipated discharge placement: Home Patient care time: Time spent in chart review, patient interview, physical exam, CPOE, and care documentation: 25 minutes Visit to patient today: 1 Complexity of care: Moderate E&M Codes Rounding: Inpt-Moderate/79002
[2016-05-10 11:34] VITALS: BP 115/54
[2016-05-10 14:30] VITALS: BP 113/45
[2016-05-10 18:18] VITALS: BP 122/47
[2016-05-10 22:23] VITALS: BP 127/63
[2016-05-11 02:33] VITALS: BP 109/64
[2016-05-11 07:36] VITALS: BP 130/108
[2016-05-11 11:04] VITALS: BP 121/49
[2016-05-11 14:48] VITALS: BP 131/49
--- NOTE | 2016-05-11 17:44 | Progress Note ---
Subjective General Pt. feels breathing is slightly better but feels very anxiousand fatigues. She did not sleep last night due to persistent coughing and feels this might happen tonight. She does not want codeine cough syrup as she has had problems with this in the past. Constitutional Weakness, Malaise. Denies: Fever, Chills, Sweats. Eyes Denies: Pain, Vision Change, Conjunctival Inflammation. ENT Denies: Nasal Discharge, Nasal Congestion. Respiratory Cough, SOB w/exertion, Wheezing, Other (abd. muscle pain from coughing). Cardiovascular Denies: Chest Pain, Palpitations, Orthopnea, Edema. Gastrointestinal Abdominal Pain. Denies: Nausea, Vomiting, Diarrhea. Genitourinary Denies: Dysuria, Frequency. Musculoskeletal Other (general achiness of muscles.). Physical Exam Vital Signs / I&Os Vital Signs Date Time Temp Pulse Resp B/P Pulse O2 O2 Flow FiO2 Ox Delivery Rate 05/11 1448 97.3 101 20 131/49 96 Nasal 3.0 Cannula 05/11 1424 3.0 05/11 1104 97.9 89 21 121/49 98 Nasal 3.0 Cannula 05/11 0827 3.0 05/11 0736 96.6 93 21 130/108 98 Nasal 2.0 Cannula 05/11 0233 97.9 97 18 109/64 94 Nasal 2.0 Cannula 05/11 0140 2.0 05/10 2223 98.1 97 20 127/63 94 Nasal 2.0 Cannula 05/10 1952 2.0 05/10 1903 2.0 05/10 1818 97.0 106 20 122/47 93 Nasal 2.0 Cannula I&O 05/10 0800 05/10 1600 05/11 0000 Intake Total 440 2517 480 Output Total 800 1300 900 Balance -360 1217 -420 General Appearance Alert, Oriented X3, Cooperative, Mild distress HEENT Normal exam Lungs decreased breath sounds with a few scater rhonchi and a few scatered wheezes. Air movement with forced expiration fair--better than expected. Cardiovascular Normal exam, Regular rate and rhythm, Normal S1 and S2, No murmurs, gallops, rubs Abdomen Normal bowel sounds, Soft, No guarding, No rebound, some tenderness of abd. wall muscles. Extremities trace edema Skin No Rashes, No Breakdown Neurological Normal exam, Normal speech, Sensation intact, Cranial nerves intact Psych/Mental Status Mental status normal, anxious Assessment and Plan Problem List 1. COPD with exacerbation Plan continue current nebs and solumedrol. Increase benzoatate for cough and add hydrocodone at hs for cough and chest discomfort. 2. Anxiety Plan add lorazepam at 0.5 mg q 4h prn. E&M Codes Rounding: Inpt-Moderate/75685
[2016-05-11 18:34] VITALS: BP 149/52
[2016-05-11 23:18] VITALS: BP 120/47
[2016-05-12 03:34] VITALS: BP 118/45
[2016-05-12 06:49] VITALS: BP 133/57
[2016-05-12 10:50] VITALS: BP 113/50
--- NOTE | 2016-05-12 14:24 | Discharge Summary ---
Discharge Summary Report Admit Date 05/11/16 Discharge Date 05/12/16 Admission Diagnosis COPD flare CAD hx GERD high chol Discharge Diagnosis COPD flare CAD hx GERD high chol Brief History 70 y.o female with acute COPD exacerbation with a hx of hypothyroid, gerd, and cad. Hospital Course Treated with abx, steroids, inhalers, O2 and improved General Appearance Alert, BP 113/50 HR- 96 O2 sat 94% T-98.1 HEENT Atraumatic Lungs coarse BS bilaterally Cardiovascular Regular Rate Abdomen Soft Psych/Mental Status Mental status NL Discharge Instructions/Meds Follow up with PMD in the next 1-2 weeks. Consider Sleep eval as out patient.
[2016-05-12] MEDS ORDERED: PREDNISONE20 MG PO (14:27)
--- NOTE | 2016-05-12 14:28 | Provider's Discharge Care Plan ---
Problem, Goal, Plan Problem List 1. COPD with exacerbation Instructions: Follow up as directed, Take meds as directed 2. CAD (coronary artery disease) Instructions: Take meds as directed
--- NOTE | 2016-05-13 21:18 | ED MED RECONCILIATION SUMMARY ---
Patient: MARCO SMART Medication Reconciliation Report [facility] VisitID: [id number] [address] [place] [address] 70y, F Registration Date/Time: 05/09/2016 Weight: 68.0 kg Height/Length: 64 in. BMI: 25.8 ALLERGIES: No Known Drug Allergy The patient's Home Medications are listed below: THE FOLLOWING MEDICATIONS NEED TO BE RECONCILED: Additional inhaler, unsure of name ASA Oral 81mg in am Atorvastatin Calcium Oral 20 mg, at bedtime Duodenum Oral Steroid inhaler The source(s) of the original Home Medication information: Not obtained. The following Medications were given to the patient in the Emergency Department: Duoneb [Neb Tx] Neb TX 1 unit dose, administered: 05/09/2016 4:17:00 PM Toradol [IVP] IVP 30 mg, administered: 05/09/2016 4:34:00 PM IV NS IV Fluids bolus 1000 mL over 1 hour(s), administered: 05/09/2016 4:30:00 PM SOLU-MEDROL [IVP] IVP 125 mg, administered: 05/09/2016 4:35:00 PM Ativan [IVP] IVP 1 mg, administered: 05/09/2016 4:40:00 PM Dilaudid [IVP] IVP 1 mg, administered: 05/09/2016 6:26:00 PM IV NS IV Fluids bolus 1000 mL over 1 hour(s), administered: 05/09/2016 7:55:00 PM Albuterol [Neb Tx] Neb TX 1 unit dose, administered: 05/09/2016 8:15:00 PM The following Medications were prescribed to the patient: None.
--- NOTE | 2016-05-13 21:18 | ED MAR SUMMARY ---
..... Medication Administration Record [facility] [address] [place] [address] Patient: MARCO SMART Visit ID: [id number] 70y, F Weight: 68.0 kg Height/Length: 64 in BMI: 25.8 ALLERGIES: No Known Drug Allergy Given 16:17 05/09/2016 Blossom Louis, Medication Administered: DUONEB [NEB TX] (IPRATROPIUM-ALBUTEROL), Dose: 1 unit dose Nebulizer Neb TX. Medication Ordered: DuoNeb Neb Tx 1 unit dose (NOW). Start 16:30 05/09/2016 Shanice Willoughby R.N., Stop 17:32 05/09/2016 Shanice Willoughby, R.N. Medication Administered: IV NS (SALINE), Dose: IV Fluids, Bolus: 1000 mL over 1 hour(s), Dispensed: 1000 mL bag, Site: #1 right forearm. Medication Ordered: IV NS : initial bolus 1000 mL (1000 mL/hr), then none - (NOW). Given 16:34 05/09/2016 Shanice Willoughby, R.N. Medication Administered: TORADOL [IVP], Dose: 30 mg IVP over 2 minute(s), Site: #1 right forearm. Medication Ordered: Toradol IV 30 mg (NOW). Given 16:35 05/09/2016 Shanice Willoughby, R.N. Medication Administered: SOLU-MEDROL [IVP] (METHYLPREDNISOLONE SODIUM SUCC), Dose: 125 mg IVP over 5 minute(s), Site: #1 right forearm. Medication Ordered: Solu-MEDROL IV 125 mg (NOW). Given 16:40 05/09/2016 Shanice Willoughby, R.N. Medication Administered: ATIVAN [IVP] (LORAZEPAM), Dose: 1 mg IVP over 2 minute(s), Site: #1 right forearm. Medication Ordered: Ativan IV 1 mg (HIGH ALERT MEDICATION, NOW). Given 18:26 05/09/2016 Shanice Willoughby R.N. Medication Administered: DILAUDID [IVP] (HYDROMORPHONE HCL PF), Dose: 1 mg IVP over 2 hour(s), Site: #1 right forearm. Medication Ordered: Dilaudid IV 1 mg (HIGH ALERT MEDICATION, NOW). Start 19:55 05/09/2016 Shanice Willoughby R.N., Stop 21:54 05/09/2016 Shanice Willoughby R.N. Medication Administered: IV NS (SALINE), Dose: IV Fluids, Bolus: 1000 mL over 1 hour(s), Dispensed: 1000 mL bag, Site: #1 right forearm. Medication Ordered: IV NS : initial bolus 1000 mL (1000 mL/hr), then none - (NOW). Given 20:15 05/09/2016 Shanice Willoughby RSlim. Medication Administered: ALBUTEROL [NEB TX], Dose: 1 unit dose Nebulizer Neb TX. Medication Ordered: Albuterol Neb Tx 1 unit dose (NOW, with pediatric spacer, HHN).
--- NOTE | 2016-05-13 21:18 | ED MED RECONCILIATION SUMMARY ---
Patient: MARCO SMART Medication Reconciliation Report [facility] VisitID: [id number] [address] [place] [address] 70y, F Registration Date/Time: 05/09/2016 Weight: 68.0 kg Height/Length: 64 in. BMI: 25.8 ALLERGIES: No Known Drug Allergy The patient's Home Medications are listed below: THE FOLLOWING MEDICATIONS NEED TO BE RECONCILED: Additional inhaler, unsure of name ASA Oral 81mg in am Atorvastatin Calcium Oral 20 mg, at bedtime Duodenum Oral Steroid inhaler The source(s) of the original Home Medication information: Not obtained. The following Medications were given to the patient in the Emergency Department: Duoneb [Neb Tx] Neb TX 1 unit dose, administered: 05/09/2016 4:17:00 PM Toradol [IVP] IVP 30 mg, administered: 05/09/2016 4:34:00 PM IV NS IV Fluids bolus 1000 mL over 1 hour(s), administered: 05/09/2016 4:30:00 PM SOLU-MEDROL [IVP] IVP 125 mg, administered: 05/09/2016 4:35:00 PM Ativan [IVP] IVP 1 mg, administered: 05/09/2016 4:40:00 PM Dilaudid [IVP] IVP 1 mg, administered: 05/09/2016 6:26:00 PM IV NS IV Fluids bolus 1000 mL over 1 hour(s), administered: 05/09/2016 7:55:00 PM Albuterol [Neb Tx] Neb TX 1 unit dose, administered: 05/09/2016 8:15:00 PM The following Medications were prescribed to the patient: None.
--- NOTE | 2016-05-13 21:18 | ED DISCHARGE INSTRUCTIONS ---
Patient: MARCO SMART General Instructions [facility] VisitID: [id number] [place] [address] 70y, F Registration Date/Time: 05/09/2016 Acute exacerbation of COPD. ADDITIONAL INFORMATION COPD Flare Both emphysema and chronic bronchitis are forms of chronic obstructive pulmonary disease (COPD). It is most often caused by many years of smoking tobacco. Many things can make your lung disease suddenly get worse. These causes include the common cold, pneumonia, acute bronchitis, missing doses of your regular breathing medicines, or being around smoke, dust, or other air pollutants. A COPD flare may last 7 to 14 days. Your doctor may prescribe medicineto relax your airways and prevent wheezing. Your doctor may also prescribe antibiotics if he or she thinks you havea bacterial infection. Prednisone can helpease inflammation in a severe attack. Home care Here are things you can do at home: Drink lots of water or other fluids (at least 10 glasses a day) during an attack. This will loosen lung secretions and make it easier to breathe. If you have heart or kidney disease, check with your doctor before you drink extra amounts of fluids. Take prescribed medicine exactly at the times advised. If you have a hand-held inhaler or aerosol breathing medicine, don't use it more than once every 4 hours, unless your doctor tells you to. If you were givenan antibiotic or prednisone, take all of the medicine even if you are feeling better after a few days. Don't smoke. Avoid being aroundthe smoke of others. If you were given an inhaler, use it exactly as directed. If you need to use it more often than prescribed, your condition may be getting worse. Call your doctor. Follow-up care Follow up with your health care provider.If you are 65 or older or have chronic asthma or COPD, you should get a single dose of the pneumococcal vaccine and aflu shot each year. You may need a second dose of the pneumococcal vaccine if you had the first dose at a younger age. Your health care provider will let you know if you need a second dose. For all other people, the usual dose for the pneumococcal vaccine is 1 or 2 shots. Yourprovider can discuss this with you. When to seek medical care Get prompt medical attention ifany of these occur: Increased wheezing or shortness of breath Need to use your inhalers more often than usual without relief Fever of 100.4F(38C) or higher, or as directed by your health care provider Coughing up lots of dark-colored or bloody sputum (mucus) Chest pain with each breath You do not start to improve within 24 hours You have been given the following additional information: COPD Flare (Electronically signed by Concepcion Hermosillo MD 05/13/2016 21:18)
--- NOTE | 2016-05-13 21:18 | ED MAR SUMMARY ---
..... Medication Administration Record [facility] [address] [place] [address] Patient: MARCO SMART Visit ID: [id number] 70y, F Weight: 68.0 kg Height/Length: 64 in BMI: 25.8 ALLERGIES: No Known Drug Allergy Given 16:17 05/09/2016 Blossom Louis, Medication Administered: DUONEB [NEB TX] (IPRATROPIUM-ALBUTEROL), Dose: 1 unit dose Nebulizer Neb TX. Medication Ordered: DuoNeb Neb Tx 1 unit dose (NOW). Start 16:30 05/09/2016 Shanice Willuoghby R.N., Stop 17:32 05/09/2016 Shanice Willoughby, R.N. Medication Administered: IV NS (SALINE), Dose: IV Fluids, Bolus: 1000 mL over 1 hour(s), Dispensed: 1000 mL bag, Site: #1 right forearm. Medication Ordered: IV NS : initial bolus 1000 mL (1000 mL/hr), then none - (NOW). Given 16:34 05/09/2016 Shanice Willoughby, R.N. Medication Administered: TORADOL [IVP], Dose: 30 mg IVP over 2 minute(s), Site: #1 right forearm. Medication Ordered: Toradol IV 30 mg (NOW). Given 16:35 05/09/2016 Shanice Willoughby, R.N. Medication Administered: SOLU-MEDROL [IVP] (METHYLPREDNISOLONE SODIUM SUCC), Dose: 125 mg IVP over 5 minute(s), Site: #1 right forearm. Medication Ordered: Solu-MEDROL IV 125 mg (NOW). Given 16:40 05/09/2016 Shanice Willoughby, R.N. Medication Administered: ATIVAN [IVP] (LORAZEPAM), Dose: 1 mg IVP over 2 minute(s), Site: #1 right forearm. Medication Ordered: Ativan IV 1 mg (HIGH ALERT MEDICATION, NOW). Given 18:26 05/09/2016 Shanice Willoughby R.N. Medication Administered: DILAUDID [IVP] (HYDROMORPHONE HCL PF), Dose: 1 mg IVP over 2 hour(s), Site: #1 right forearm. Medication Ordered: Dilaudid IV 1 mg (HIGH ALERT MEDICATION, NOW). Start 19:55 05/09/2016 Shanice Willoughby R.N., Stop 21:54 05/09/2016 Shanice Willoughby R.N. Medication Administered: IV NS (SALINE), Dose: IV Fluids, Bolus: 1000 mL over 1 hour(s), Dispensed: 1000 mL bag, Site: #1 right forearm. Medication Ordered: IV NS : initial bolus 1000 mL (1000 mL/hr), then none - (NOW). Given 20:15 05/09/2016 Shanice Willoughby RSlim. Medication Administered: ALBUTEROL [NEB TX], Dose: 1 unit dose Nebulizer Neb TX. Medication Ordered: Albuterol Neb Tx 1 unit dose (NOW, with pediatric spacer, HHN).
== END 2016-05-12 15:00 | disposition home or self-care (01) | DRG 190 ==
LOC: ED SRH 15:18 → ACUTE2 SRH 20:41 → TRANS SRH 20:41 → ACUTE2 SRH 22:01
PROVIDERS: ADMIT Internal Medicine
DX: J44.1 Chronic obstructive pulmonary disease with (acute) exacerbation (principal); J96.01 Acute respiratory failure with hypoxia; E78.00 Pure hypercholesterolemia, unspecified; E03.9 Hypothyroidism, unspecified; K21.9 Gastro-esophageal reflux disease without esophagitis; I25.10 Atherosclerotic heart disease of native coronary artery without angina pectoris
CPT/HCPCS: 29230; 90047; 90074; 90100; 91286; 91295; 91400; 92720; 93140; 95059; 95061